=== PATIENT | female | born 1960 | race Caucasian/White ===

== ENCOUNTER 2018-08-16 08:36 | Emergency (ER) | payer OTHER ==
[2018-08-16] MEDS ORDERED: Adenosine* 3 MG/ML VIAL ONE (08:47)
[2018-08-16] MEDS ORDERED: Adenosine* 3 MG/ML VIAL IV PUSH ONE (08:55)
--- NOTE | 2018-08-16 09:02 | ED ---
HPI Chest Pain - HPI Summary HPI Summary: This patient is a 58 year old F presenting to [facility] with a chief complaint of tachycardia since one hour prior to arrival but stated that episodes of Sx have been present since 6 months ago with intermittent pain and length. Chest pressure is endorsed. She had a HR of 191 BPM and BP 190/100. The Patient reports feeling SOB, dizziness, and rushing of blood in the head. The patient denies any N/V. The patient has a previous Fhx of atherosclerosis and a pertinent Hx of hypertension, hyperlipidemia, and smoking a half PPD. The patient rates the pain 9/10 in severity. Symptoms aggravated by nothing. Symptoms alleviated by nothing. - History of Current Complaint Hx Obtained From: Patient Onset/Duration: Started Hours Ago - 1 Time of Onset: 07:30 Timing: Constant - constant chest pressure Initial Severity: Severe Current Severity: Moderate Pain Intensity: 6 Pain Scale Used: 0-10 Numeric Chest Pain Location: Left Anterior Chest Pain Radiates: No Character: Pressure/Squeezing Alleviating Factor(s): Nothing Associated Signs and Symptoms: Positive: Chest Pain, Dizziness, Shortness of Breath, Other: - "rushing blood in head". 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 Hx Chemotherapy: No Hx Radiation Therapy: No - Surgical History Surgery Procedure, Year, and Place: CERVICAL SPINAL FUSION, HYSTERECTOMY, PANCREATIC GROWTH REMOVED, CHOLECYSTECTOMY Infectious Disease History: No Infectious Disease History: Reports: Hx Shingles Denies: Traveled Outside the [place] in Last 30 Days - Family History Known Family History: Positive: Other - atherosclerosis - Social History Alcohol Use: None Hx Substance Use: No Substance Use Type: Reports: None Hx Tobacco Use: Yes Smoking Status (MU): Current Every Day Smoker Type: Cigarettes Amount Used/How Often: half a pack per day Review of Systems Positive: Other - dizziness, "rushing of blood in head" Positive: Palpitations, Chest Pain Positive: Shortness Of Breath Negative: Vomiting, Nausea All Other Systems Reviewed And Are Negative: Yes Physical Exam - Summary Physical Exam Summary: VITAL SIGNS: Reviewed. GENERAL: Patient is a well-developed and nourished FEMALE who is lying comfortable in the stretcher. Patient is not in any acute respiratory distress. HEAD AND FACE: No signs of trauma. No ecchymosis, hematomas or skull depressions. No sinus tenderness. EYES: PERRLA, EOMI x 2, No injected conjunctiva, no nystagmus. EARS: Hearing grossly intact. Ear canals and tympanic membranes are within normal limits. MOUTH: Oropharynx within normal limits. NECK: Supple, trachea is midline, no adenopathy, no JVD, no carotid bruit, no c- spine tenderness, neck with full ROM. CHEST: Symmetric, no tenderness at palpation LUNGS: Clear to auscultation bilaterally. No wheezing or crackles. CVS: Tachycardic, S1 and S2 present, no murmurs or gallops appreciated. ABDOMEN: Soft, non-tender. No signs of distention. No rebound no guarding, and no masses palpated. Bowel sounds are normal. EXTREMITIES: FROM in all major joints, no edema, no cyanosis or clubbing. NEURO: Alert and oriented x 3. No acute neurological deficits. Speech is normal and follows commands. SKIN: Dry and warm Triage Information Reviewed: Yes Vital Signs On Initial Exam: Initial Vitals Temp Pulse Resp BP Pulse Ox 98.7 F 190 20 0/0 100 08/16/18 08:40 08/16/18 08:40 08/16/18 08:40 08/16/18 08:40 08/16/18 08:40 Vital Signs Reviewed: Yes Diagnostics - Vital Signs Vital Signs Temp Pulse Resp BP Pulse Ox 08/16/18 08:40 98.7 F 190 20 0/0 100 - Laboratory Result Diagrams: 08/16/18 08:59 08/16/18 08:59 Lab Statement: Any lab studies that have been ordered have been reviewed, and results considered in the medical decision making process. - Radiology CXR Radiology Interpretation Completed By: Radiologist Summary of Radiographic Findings: Stigmata of obstructive lung disease. No acute pulmonary or cardiac process evident. ED physician has reviewed this report. - EKG 0839 Cardiac Rate: Tachycardia - Sinus tachycardia, 192 BPM EKG Rhythm: Sinus Rhythm ST Segment: Normal Summary of EKG Findings: Sinus rhythm and sinus tachycardia with [address] Elevations. 1139 Cardiac Rate: NL - 67 BPM EKG Rhythm: Sinus Rhythm ST Segment: Normal Summary of EKG Findings: Normal sinus rhythm and rate @ [address] elevation Re-Evaluation - Re-Evaluation First Eval Re-Evaluation Time: 09:09 Change: Improved Comment: Patient's HR has decreased to 70 BPM. Second Eval Re-Evaluation Time: 09:58 Comment: Possible admit discussed with patient. Third Eval Re-Evaluation Time: 11:01 Comment: Dr. Ricardo informed the patient on the discharge plan. The patient is agreeable. Chest Pain Course/Dx - Course Assessment/Plan: This patient is a 58 year old F presenting to [facility] with a chief complaint of tachycardia since one hour prior to arrival but stated that episodes of Sx have been present since 6 months ago with intermittent pain and length. Chest pressure is endorsed. She had a HR of 191 BPM and BP 190/100. The Patient reports feeling SOB, dizziness, and rushing of blood in the head. The patient denies any N/V. The patient has a previous Fhx of atherosclerosis and a pertinent Hx of hypertension, hyperlipidemia, and smoking a half PPD. The patient rates the pain 9/10 in severity. Symptoms aggravated by nothing. Symptoms alleviated by nothing. EKG shows that the patient has an SVT at 191 bpm. Patient was placed in a rn cardiac cath, IV access was obtained. The patient started with IV fluids and she was given 6 mg of adenosine. After this medication was given the heart rate is 70 bpm. At this point the patient is feeling better she doesnt have any chest pain shortness of breath or palpitations. Blood test results without any significant abnormality except for carbon dioxide of 20 and anion gap 13, glucose 149 and magnesium 1.7 for which the patient was given magnesium by mouth. Urinalysis is negative for UTI. Dr. Ricardo from cardiology consulted for the patient and he recommends for the patient to be discharged home with a prescription for metoprolol 25 mg daily and he she will follow-up with and Dr. Ricardo at his office. I discussed all the findings and test results with the patient. Patient was instructed to return to the emergency room immediately if any of the symptoms return worsens. Plan of care was discussed with the patient and understands and agrees. All questions were answered at patient satisfaction. There were no further complaints or concerns. Lung exam before discharge: CTA B/L. Good air exchange. No wheezing or crackles heard. CVS: S1 and S2 present. No murmurs appreciated. Patient is alert and oriented x 3. Patient is hemodynamically stable. Patient will be discharged home with follow up PCP in the next 2-3 days - Chest Pain Differential Diagnosis/HQI/PQRI: Acute TX, ACS, Angina, CHF, Chest Wall, GI Disease, Lower Respiratory Infection - Diagnoses Provider Diagnoses: SVT (supraventricular tachycardia) - Provider Notifications Discussed Care Of Patient With: Zach Ricardo Time Discussed With Above Provider: 09:47 Instructed by Provider To: Other - 0947 - Dr. Ricardo, collections specialist, agreed to see the patient in the ED. 1105 - After evaluation of patient, Dr. Ricardo recommended discharging the patient home. Discharge - Sign-Out/Discharge Documenting (check all that apply): Patient Departure - discharge Patient Received Moderate/Deep Sedation with Procedure: No - Discharge Plan Condition: Stable Disposition: HOME Prescriptions: Metoprolol Tartrate TAB* [Lopressor TAB*] 25 mg PO DAILY #30 tab Patient Education Materials: Supraventricular Tachycardia (ED) Referrals: Zach Ricardo MD [Medical Doctor] - Ashtyn Vidal MD [Primary Care Provider] - 3 Days Additional Instructions: FOLLOW UP WITH YOUR PRIMARY CARE PROVIDER WITHIN 3 DAYS. RETURN TO THE ED FOR ANY WORSENING OR NEW SYMPTOMS. - Billing Disposition and Condition Condition: STABLE Disposition: Home - Attestation Statements Document Initiated by Jeannettee: Yes Documenting Scribe: Gulshan Andre Provider For Whom Kaya is Documenting (Include Credential): Timbo Griggs MD Scribe Attestation: Gregoria, Gulshan Hsu and Dav Andre, scribed for Timbo Griggs MD on 08/18/18 at 1137. Scribe Documentation Reviewed: Yes Provider Attestation: The documentation as recorded by the kendallibe, Gulshan Andre accurately reflects the service I personally performed and the decisions made by me, Timbo Griggs MD Status of Scribe Document: Viewed
[2018-08-16 09:10] LABS: ABS Basophils 0.1 10^3/ul (0-0.2); ABS Eosinophils 0.3 10^3/ul (0-0.6); ABS Lymphocytes 4.7 10^3/ul (1.0-4.8); ABS Monocytes 0.8 10^3/ul (0-0.8); ABS Neutrophils 4.5 10^3/ul (1.5-7.7); Eosinophil % 2.8 %; Hematocrit 44 % (35-47); Hemoglobin 15.2 g/dL (12.0-16.0); Lymphocyte % 45.1 %; Mean Corpuscular HGB Conc 35 g/dL (31-36); Mean Corpuscular Hemoglobin 32 pg (27-31); Mean Corpuscular Volume 92 fL (80-97); Mean Platelet Volume 8.1 fL (7.4-10.4); Nucleated Red Blood Cells % 0.1; Platelet Count 291 10^3/uL (150-450); Red Blood Count 4.79 10^6 /uL (3.70-4.87); Red Cell Distribution Width 13 % (10.5-15); White Blood Count 10.5 10^3/uL (3.5-10.8)
[2018-08-16 09:22] LABS: INR 0.91 (0.82-1.09)
[2018-08-16 09:36] LABS: Troponin I 0.02 ng/mL (<0.04)
[2018-08-16 09:37] LABS: Albumin/Globulin Ratio 1.4 (1-3); BUN/Creatinine Ratio 20.9 (8-20); Calcium 9.1 mg/dL (8.6-10.3); EGFR Non-African American 67.8 (>60); Globulin 2.9 g/dL (2-4); Magnesium 1.7 mg/dL (1.9-2.7); Total Bilirubin 0.4 mg/dL (0.2-1.0); Total Protein 6.9 g/dL (6.4-8.9)
[2018-08-16] MEDS ORDERED: Magnesium Oxide TAB* 400 MG PO ONE (09:42)
[2018-08-16 09:54] LABS: Urine Appearance Cloudy; Urine Bilirubin Negative (Negative); Urine Blood Negative (Negative); Urine Color Straw; Urine Glucose Negative (Negative); Urine Ketones Negative (Negative); Urine Nitrite Negative (Negative); Urine Protein Negative (Negative); Urine Specific Gravity 1.003 (1.010-1.030); Urine Urobilinogen Negative (Negative)
[2018-08-16 10:00] LABS: T4, Total 7.57 mcg/dL (6.09-12.23)
[2018-08-16 10:03] LABS: TSH (Thyroid Stimulating Horm) 2.84 mcIU/mL (0.34-5.60)
[2018-08-16 11:32] VITALS: BP 153/81
--- NOTE | 2018-08-16 12:17 | CONS ---
CARDIOLOGY CONSULTATION: DATE OF CONSULT: 08/16/18 INDICATION FOR CONSULTATION: Supraventricular tachycardia. HISTORY OF PRESENT ILLNESS: The patient is a 58-year-old female with a smoking history of hypertensi on, who came to the emergency room because of heart racing. The patient states that over the last 6 m onths, she has had a couple of episodes where she felt her heart racing, sometimes it would last up t o a couple of hours and then resolve on its own. While she was having the tachycardia, she was havin g some degree of shortness of breath and jaw discomfort. When her tachycardia went away her symptoms went away. The patient denied any symptoms with exertion. She denied any lightheadedness, dizzines s, or syncope. On arrival to the emergency room, she was in a narrow complex tachycardia SVT at 189 beats per minute . She was given 6 mg of adenosine and converted to normal sinus rhythm. After she converted to norm al sinus rhythm her symptoms resolved. PAST MEDICAL HISTORY: Unremarkable although she does not see physicians very frequently. She does h ave a history of obesity, smoking, hypertension. PAST SURGICAL HISTORY: Unknown. FAMILY HISTORY: Both parents of cardiology complications in their 80s. She does not give any m ore details other than that. 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 She denies any regular exercise. She d oes smoke occasionally. Her alcohol intake has dropped significantly in the last 10 years. She stil l drinks a couple of drinks a week. REVIEW OF SYSTEMS: Negative for fevers and chills. Negative for changes of bowel or bladder habits. Negative for edema. She does state that she has had a significant weight change in the last couple of years. She was very heavy lost 60 pounds and has gained it back. PHYSICAL EXAM: On physical exam, height is 5 feet 8 inches, weight 225 pounds, temperature 98.7, hea rt rate is 72, blood pressure 132/76, respiratory rate is 19, oxygen saturation 97% on room air. Scl erae are anicteric. Oropharynx is pink without erythema. Carotids are 2+ without bruits. JVD is no rmal. Thyroid is normal. Cardiac Exam: S1, S2 without any murmurs, rubs or gallops. Lungs are cl ear to auscultation bilateral. There is no dullness to percussion. Abdomen is soft, nontender, nond istended with normoactive bowel sounds. Extremities: Show no edema. She has 2+ pulses throughout. The patient is awake, alert, and oriented. She moves all 4 extremities equally. LABORATORY STUDIES: CBC within normal limits. Chemistries within normal limits. BUN 18, creatinine 0.8, AST and ALT are normal. TSH is normal, total cholesterol 193, LDL cholesterol 104, HDL choleste rol 54. IMPRESSION: This is a 58-year-old female who came to the emergency room because of tachycardia, she was found to be in SVT at 190 beats per minute. The patient converted to normal sinus rhythm with 6 mg of adenosine. Her repeat EKG is yet to be done. I will review that before discharge. Her laboratory studies are w ithin normal limits. Her exam is benign. For now, my recommendation is the patient to start low dose beta blockers. I would start metoprolol tartrate 25 mg twice a day. Her other medications will remain the same. Her cardiac status does not require an aspirin a day. I just was handed her EKG. Her baseline EKG shows normal sinus rhythm at 67 beats per minute, otherw ise unremarkable. The patient will be seen in an outpatient and will get an echocardiogram and a stress test done. Fur ther recommendations pending the results of her outpatient testing. [id number]/[facility] #: [id number]
== END 2018-08-16 11:31 | disposition home or self-care (01) ==
LOC: ED 08:36
DX: I47.1 Supraventricular tachycardia (principal); R06.02 Shortness of breath; R42 Dizziness and giddiness; R07.89 Other chest pain; I10 Essential (primary) hypertension; Z82.49 Family history of ischemic heart disease and other diseases of the circulatory system; F17.210 Nicotine dependence, cigarettes, uncomplicated
CPT/HCPCS: 36415; 71045; 80053; 80061; 81003; 82550; 83605; 83735; 84436; 84443; 84484; 85025; 85379; 85610; 93005; 96374; 99284; J0153